=== PATIENT | female | born 1975 | race Caucasian/White ===

== ENCOUNTER → 2021-04-02 | Outpatient (CLI) | payer BC ==
--- NOTE | 2021-04-02 14:02 | REP ---
INDICATION: NON PRESSURE CHRONIC ULCER RT LEG / ULCER LT LEG COMPARISON: None. TECHNIQUE: Real time compression and duplex Doppler interrogation of the bilateral lower extremity deep venous system is performed. Compression ultrasound is performed of the bilateral peroneal and posterior tibial veins. Evaluation for venous reflux is performed. FINDINGS: Bilaterally, the common femoral, superficial femoral and popliteal veins are fully compressible with transducer pressure and demonstrate normal spontaneous and phasic flow, without evidence of deep venous thrombosis. The bilateral peroneal and posterior tibial veins could not be visualized due to body habitus. Evaluation for venous reflux on the right, with augmentation and standing, demonstrates no reflux in any portion of the deep or superficial system. There is no evidence of an anterior accessory greater saphenous vein. The greater saphenous vein measures 7 mm in AP dimension at the saphenofemoral junction, 5 mm at the midthigh and 6 mm at the knee. On the left, there is minimal reflux in the left common femoral vein less than 1 sec, with no reflux in the superficial femoral or popliteal veins. There is no evidence of an anterior accessory greater saphenous vein. There is reflux in the greater saphenous vein at the saphenofemoral junction with a duration of 3.5 seconds, AP diameter 8 mm. There is no reflux in the greater saphenous vein at the midthigh, which measures 6 mm. There is reflux in the greater saphenous vein at the knee, duration 2.9 seconds, AP diameter 5 mm. There is reflux in the lesser saphenous vein with augmentation, duration is 1.5 seconds with AP diameter 3 mm. IMPRESSION: No evidence of deep venous thrombosis of the bilateral lower extremity femoral popliteal venous system. There is venous reflux of the left lower extremity as discussed in detail above. <Electronically signed by Evelio Rojas > 04/02/21 3128
== END ==
LOC: M RAD 10:40
PROVIDERS: ATTEND Physician Assistant
DX: L97.812 Non-pressure chronic ulcer of other part of right lower leg with fat layer exposed (principal)

== ENCOUNTER → 2021-08-31 | Outpatient (CLI) | payer BC | LOC: M WUC 10:04 | PROVIDERS: ATTEND Physician Assistant | DX: U07.1 COVID-19 (principal); R05.3 Chronic cough ==

== ENCOUNTER → 2022-01-22 | Outpatient (REF) | payer BC, OTHER ==
[2022-01-22 16:49] LABS: HEMOGLOBIN A1c 5.9 %
[2022-01-22 17:14] LABS: ALBUMIN 3.1 GM/DL (3.2-5.2); ALT/SGPT 17 U/L (12-78); BILIRUBIN,TOTAL 0.3 MG/DL (0.2-1.0); BLOOD UREA NITROGEN 9 MG/DL (7-18); CALCIUM LEVEL 9.4 MG/DL (8.5-10.1); CARBON DIOXIDE LEVEL 23 MEQ/L (21-32); CHLORIDE LEVEL 107 MEQ/L (98-107); CREATININE FOR GFR 1.03 MG/DL (0.55-1.30); GLOMERULAR FILTRATION RATE > 60.0 (>58); GLUCOSE, FASTING 149 MG/DL (70-100); POTASSIUM SERUM 4.5 MEQ/L (3.5-5.1); SODIUM LEVEL 139 MEQ/L (136-145); TOTAL PROTEIN 7.4 GM/DL (6.4-8.2)
[2022-01-22 17:24] LABS: TOTAL 25(OH) VITAMIN D 14.2 NG/ML (30.0-100.0)
== END ==
LOC: M WUC 14:16
PROVIDERS: ATTEND Nurse Practitioner Adult Health
DX: E74.39 Other disorders of intestinal carbohydrate absorption (principal); E55.9 Vitamin D deficiency, unspecified; Z13.29 Encounter for screening for other suspected endocrine disorder

== ENCOUNTER → 2023-10-05 | Outpatient (CLI) | payer OTHER ==
[2023-10-05 13:46] LABS: HEMOGLOBIN A1c 5.9 % (4.0-6.0)
[2023-10-05 14:07] LABS: ALKALINE PHOSPHATASE 69 U/L (46-116); ALT/SGPT 9 U/L (7.0-40); AST/SGOT 9 U/L (<34); BILIRUBIN,TOTAL 0.4 MG/DL (0.3-1.2); BLOOD UREA NITROGEN 10 MG/DL (9-23); CALCIUM LEVEL 8.1 MG/DL (8.5-10.1); CARBON DIOXIDE LEVEL 27 MMOL/L (20-31); CHLORIDE LEVEL 106 MMOL/L (98-107); CHOLESTEROL LEVEL 178 MG/DL (<200); CHOLESTEROL RISK RATIO 4.78 (<5); CREATININE FOR GFR 0.78 MG/DL (0.55-1.30); GLOMERULAR FILTRATION RATE > 60.0 (>58); GLUCOSE, FASTING 109 MG/DL (60-100); HDL CHOLESTEROL 37.2 MG/DL (>40); LDL CHOLESTEROL 108.4 MG/DL (<100); NON-HDL-C 140.8 MG/DL; POTASSIUM SERUM 4.4 MMOL/L (3.5-5.1); SODIUM LEVEL 139 MMOL/L (136-145); TOTAL PROTEIN 6.8 G/DL (5.7-8.2); TRIGLYCERIDES LEVEL 162 MG/DL (<150)
[2023-10-05 14:08] LABS: THYROID STIMULATING HORMONE 1.692 uIU/ML (0.55-4.78); TOTAL 25(OH) VITAMIN D 9.8 NG/ML (20.0-100.0)
== END ==
LOC: M WUC 08:59
PROVIDERS: ATTEND Nurse Practitioner Adult Health
DX: E74.39 Other disorders of intestinal carbohydrate absorption (principal); Z13.220 Encounter for screening for lipoid disorders; Z87.42 Personal history of other diseases of the female genital tract; E55.9 Vitamin D deficiency, unspecified

== ENCOUNTER → 2025-02-07 | Outpatient (CLI) | payer OTHER, BC ==
[2025-02-07 13:26] LABS: ESTIMATED AVERAGE GLUCOSE 105.0 MG/DL (60-110)
[2025-02-07 13:45] LABS: ALT/SGPT 19.0 U/L (7.0-40); AST/SGOT 25.0 U/L (<34); CALCIUM LEVEL 8.9 MG/DL (8.5-10.1); CARBON DIOXIDE LEVEL 26.0 MMOL/L (20-31); CHLORIDE LEVEL 104.0 MMOL/L (98-107); CHOLESTEROL LEVEL 167.0 MG/DL (<200); CHOLESTEROL RISK RATIO 4.0 (<5); CREATININE FOR GFR 0.88 MG/DL (0.55-1.30); FREE T4 1.32 NG/DL (0.89-1.76); GLOMERULAR FILTRATION RATE 79.5 (>51); LDL CHOLESTEROL 98.3 MG/DL (<100); NON-HDL-C 125.3 MG/DL; POTASSIUM SERUM 4.8 MMOL/L (3.5-5.1); SODIUM LEVEL 142.0 MMOL/L (136-145); TRIGLYCERIDES LEVEL 135.0 MG/DL (<150)
== END ==
LOC: M WUC 09:55
PROVIDERS: ATTEND Nurse Practitioner Adult Health
DX: E78.2 Mixed hyperlipidemia (principal); E74.39 Other disorders of intestinal carbohydrate absorption; E55.9 Vitamin D deficiency, unspecified; E66.01 Morbid (severe) obesity due to excess calories